=== PATIENT | male | born 1980 | race Caucasian/White ===

== ENCOUNTER 2023-04-25 11:08 | Emergency (ER) | payer OTHER, SELFPAY ==
[2023-04-25 11:13] VITALS: BP 143/94
[2023-04-25 11:44] LABS: COVID-19 Antigen Negative (Negative)
[2023-04-25 12:49] VITALS: BMI 26.1
--- NOTE | 2023-04-25 13:20 | ED.GENMED ---
History of Present Illness
General
Chief Complaint: Cold/Flu/URI Symptoms
Source: patient
Exam Limitations: none
Time Seen by Provider: 04/25/23 12:46
Travel History
Have you had any contact with someone who has COVID-19?: No
Do you have any symptoms of coronavirus? Fever > 100 degrees, chills, cough, shortness of breath, sore throat, loss of taste or smell, muscle aches, or headache?: No
History of Present Illness
History of Present Illness:
42-year-old male presents complaining of ongoing symptoms for approximately 10 days. Initially started as runny nose nasal congestion cough. Other members in household are sick with similar symptoms. They have improved however he continues to
decline. He now notes nausea and a frontal headache. The headache is gradual in onset moderate in severity. There is neck comfort as well. He denies a rash. No difficulty swallowing. No other complaints at this time
Past History
Past History
ED Past Medical History: GERD, HTN, Hypercholesterolemia, NIDDM (Lost 30 pounds and no longer diabetic) and Other (IBS)
ED Past Surgical History: Other ([place] teeth)
Social History
Tobacco: Non-smoker
Alcohol: Occasional
Drug: None
Personal:
Living: with family
Employment: Not employed
Family History
Family History: Early CAD; Negative Sudden
Phy Exam
Physical Exam
Physical Exam:
General: Well-appearing male no acute respiratory distress
HEENT: Normocephalic atraumatic posterior pharynx without erythema or exudate neck is supple no adenopathy
Heart: Regular rate and rhythm no murmurs
Lungs: Clear to auscultation bilaterally no wheezing
Abdomen: Soft nontender nondistended no guarding rebound normal bowel sounds
Extremities: No cyanosis or edema
Skin: Warm no rash or lesions
Neurologic exam: No nuchal rigidity or meningeal signs
Course
Orders/Labs/Results
Orders:
Orders
04/25/23 11:17
COVID-19 Antigen Urgent
Source: Nasal Swab
Influenza A+B Rapid Molecular Urgent
JES[facility] Source: Nasal Swab
Specimen Description:
04/25/23 13:17
0.9% Sodium Chloride 1000 ml [Nss] 1,000 ml IV BOLUS
Ketorolac [Toradol] 15 mg IV NOW STA
Ondansetron Injectable [Zofran] 4 mg IV NOW STA
04/25/23 13:31
Complete Blood Count/With Diff Urgent
Comprehensive Metabolic Panel Urgent
Abnormal Lab Results
04/25/23
13:31
Absolute Neuts (auto) 6.7 H 10^3/uL
(1.4-6.5)
Absolute Lymphs (auto) 1.1 L 10^3/uL
(1.2-3.4)
Neutrophils % 79.0 H %
(42.2-75.2)
Lymphocytes % 12.8 L %
(20.5-51.1)
BUN 24 H mg/dl
(9-20)
Glucose 124 H mg/dl
(70-99)
ALT 69 H U/L
(0-50)
04/25/23 13:31
04/25/23 13:31
Vital Signs
Initial and Last Documented VS:
Initial Vital Signs
Temp Pulse Resp BP Pulse Ox
99.0 F 94 18 143/94 99
04/25/23 11:13 04/25/23 11:13 04/25/23 11:13 04/25/23 11:13 04/25/23 11:13
Last Documented Vital Signs
Temp Pulse Resp BP Pulse Ox
99.0 F 94 18 125/88 96
04/25/23 11:13 04/25/23 11:13 04/25/23 11:13 04/25/23 13:42 04/25/23 14:30
MDM/Problems Addressed
Differential Diagnosis Includes:
Generalized sensation of unwell feeling. Consider viral syndrome versus sinusitis. No clinical concern for meningitis.
Will check labs hydrate and treat with Zofran fluids Toradol
*Critical Care Note
Total Time (30-74mins, 75-104mins- exclusive of procedures): Not Applicable
Update Note
Update Note:
Patient feeling overall improved after fluids Toradol Zofran still notes a frontal sinus pressure. Still alert upon reassessment again no meningeal signs upon reassessment. Patient states he does tend to get sinus infections after illnesses like
this. He has had antibiotics from his family doctor in the past. Prescribed Augmentin. Will prescribe Zofran if needed for nausea. No indication for lumbar puncture at this time. Stable for discharge
ED Attending Note
-
Portions of this chart may have been created with voice recognition software.� Occasional wrong word or��sound alike� substitutions may have occurred due to the inherent limitations of voice recognition software.
Discharge Plan
Departure
Patient Disposition: Home (Routine Discharge)
Date of Disposition: 04/25/23
Time of Disposition: 15:35
Patient with high blood pressure during this ER visit?: No
Discharge Problem:
Acute sinusitis
Instructions: Viral Upper Respiratory Infection, Adult (DC)
Prescriptions:
New
amoxicillin-pot clavulanate 875-125 mg tablet
1 tab PO BID Qty: 20 0RF
ondansetron 4 mg tablet,disintegrating
4 mg PO Q8H PRN (Reason: nausea and vomiting) Qty: 10 0RF
No Action
metformin 1,000 mg Tablet
1,000 mg PO DAILY
lisinopril 10 mg Tablet
5 mg PO DAILY
omeprazole 20 mg Capsule,Delayed Release(Dr/Ec)
20 mg PO DAILY
ezetimibe [Zetia] 10 mg Tablet
10 mg PO DAILY
rosuvastatin [Crestor] 40 mg Tablet
40 mg PO DAILY
magnesium 500 mg Tablet
500 mg PO QPM
finasteride 5 mg Tablet
5 mg PO DAILY
cholecalciferol (vitamin D3) [Vitamin D3] 50 mcg (2,000 unit) Tablet
50 mcg PO DAILY
acetaminophen [Tylenol Extra Strength] 500 mg Tablet
1,000 mg PO Q6H PRN (Reason: pain)
ibuprofen 200 mg Tablet
400 mg PO Q6H PRN (Reason: pain)
ibuprofen 200 mg tablet
400 - 600 mg PO Q6HPRN PRN (Reason: moderate pain) Qty: 1 0RF
oxycodone 5 mg tablet
5 mg PO Q4HPRN PRN (Reason: breakthrough/severe pain) Qty: 7 0RF
Referrals:
Edil Gamble DO [Family Provider] -
Activity Restrictions/Additional Instructions:
Take antibiotics as directed. Use Zofran if needed for nausea. Rest. Drink plenty fluids. Return if worse otherwise follow-up with family doctor
Interventions
Interventions:
*Risk Screen - Suicide Last Done: 04/25/23 12:49
*General Assessment Last Done: 04/25/23 12:49
*Neglect/Abuse Screening Last Done: 04/25/23 12:49
ED- Fall Risk Assessment Last Done: 04/25/23 12:49
*ED COVID-19 Vaccine History Last Done: 04/25/23 12:49
ED- Pulmonary Assessment Last Done: 04/25/23 12:49
[2023-04-25] MEDS: NSS 1000 IV (13:38)
[2023-04-25] MEDS: TORADOL 15 MG IV (13:38)
[2023-04-25] MEDS: ZOFRAN 4 MG IV (13:38)
[2023-04-25 13:42] VITALS: BP 125/88
[2023-04-25 13:55] LABS: % Basophils 0.2 % (0-2); % Eosinophils 0.2 % (0-6); % Immature Granulocytes 0.4 % (0-0.5); % Lymphocytes 12.8 % (20.5-51.1); % Monocytes 7.4 % (1.7-9.3); Absolute Lymphocytes 1.1 10^3/uL (1.2-3.4); Absolute Monocytes 0.6 10^3/uL (0.1-0.6); Absolute Neutrophils 6.7 10^3/uL (1.4-6.5); Hematocrit 40.5 % (39.0-52.0); Mean Corp Hgb Conc. 34.6 g/dL (33.0-37.0); Mean Corpuscular Hgb 28.2 pg (27.0-31.0); Mean Corpuscular Volume 81.5 fL (80.0-94.0); Mean Platelet Volume 10.3 fL (7.4-10.4); Nucleated Red Blood Cells % 0 % (-); Platelet Count 176 10^3/uL (130-400); Red Blood Cell Count 4.97 10^6/uL (4.70-6.10); Red Cell Dist. Width 13.2 % (11.5-14.5); White Blood Cell Count 8.4 10^3/uL (4.8-10.8)
[2023-04-25 14:09] LABS: ALT (SGPT) 69 U/L (0-50); AST (SGOT) 33 U/L (17-59); Albumin 4.5 g/dl (3.5-5.0); Alkaline Phosphatase 53 U/L (38-126); Blood Urea Nitrogen 24 mg/dl (9-20); Calcium 10.1 mg/dl (8.4-10.2); Carbon Dioxide 25 mmol/L (22-30); Chloride 98 mmol/L (98-107); Estimated Creatinine Clearance > 125 ml/min; Glucose 124 mg/dl (70-99); Potassium 4.4 mmol/L (3.5-5.1); Sodium 135 mmol/L (135-145); Total Bilirubin 1.2 mg/dl (0.2-1.3); Total Protein 6.9 g/dl (6.3-8.2); eGFR > 60.00
[2023-04-25 15:57] VITALS: BP 129/85
== END 2023-04-25 16:26 | disposition home or self-care (01) ==
LOC: EMR 11:08
PROVIDERS: Physician Assistant; EMERGENCY PHYSICIAN Emergency Medicine; FAMILY PHYSICIAN Family Medicine
DX: J01.90 Acute sinusitis, unspecified (principal); Z11.52 Encounter for screening for COVID-19
CPT/HCPCS: 99284; 96374; 96375; 96361; 80053; 85025; 87502; 87811

== ENCOUNTER → 2023-05-18 06:17 | Day surgery (SDC) | payer OTHER, SELFPAY ==
[2023-05-18 07:22] LABS: Glucose - Point of Care 107 mg/dl (70-99)
== END ==
LOC: GI 06:17
PROVIDERS: ATTENDING PHYSICIAN Internal Medicine Gastroenterology
DX: Z12.11 Encounter for screening for malignant neoplasm of colon (principal); K64.8 Other hemorrhoids
CPT/HCPCS: G0121; 82962

== ENCOUNTER → 2025-02-18 12:51 | Outpatient (REF) | payer OTHER, SELFPAY | LOC: EMG 12:51 | PROVIDERS: ATTENDING PHYSICIAN Family Medicine | DX: R20.0 Anesthesia of skin (principal); M79.601 Pain in right arm | CPT/HCPCS: 95886; 95909 ==